=== PATIENT | male | born 1960 | race African-American/Black ===

== ENCOUNTER → 2020-01-15 | Outpatient (CLI) | payer OTHER ==
--- NOTE | 2020-01-15 13:42 | RAD ---
EXAM: Abdomen sonogram. HISTORY: Pain. TECHNIQUE: Sonographic imaging of the abdomen was performed. COMPARISON: None. FINDINGS: The liver is normal in size. There is hepatic steatosis with focal fatty sparing along the collar fossa. The gallbladder is unremarkable. The kidneys are normal in size. There is no hydronephrosis. There are simple bilateral renal cysts measuring 2.6 cm on the right and 2.9 cm and 3.5 cm on the left. No solid renal lesion is seen. The pancreas is partially obscured due to bowel gas. The aorta is normal in caliber. The inferior vena cava is patent. IMPRESSION: 1. Hepatic steatosis. 2. Bilateral simple appearing renal cysts. Follow-up is not routinely recommended for simple renal cysts. Electronically signed by: Dariela Pérez MD (01/15/2020 1:39 PM) [facility]
== END | disposition home or self-care (01) ==
LOC: US 11:13
DX: N28.1 Cyst of kidney, acquired (principal); K76.0 Fatty (change of) liver, not elsewhere classified; K59.00 Constipation, unspecified; Z90.89 Acquired absence of other organs
CPT/HCPCS: 76700